=== PATIENT | male | born 1985 | race Caucasian/White ===

== ENCOUNTER 2020-11-12 14:30 | Inpatient (IN) | payer BC, SELFPAY ==
[2020-11-12] VITALS (8 sets, daily range): BP systolic 119–156; BP diastolic 72–92; PULSE 104–115; RESP 20–32; TEMP 36.2–37.1; O2SAT 91–93
--- NOTE | ~2020-11-12 | XR_ITS ---
XR chest 1V portable DATE: 11/12/2020 15:09 INDICATION: Shortness of breath, cough, nausea. Covid-positive patient. TECHNIQUE: Portable upright AP view on 11/12/2020 at 1510 hours COMPARISON: None FINDINGS: Normal heart size. No pleural effusion. There are patchy bilateral infiltrates involving the mid and lower lung zones primarily, likely due t o bilateral pneumonia. No pneumothorax. Dextroscoliosis of the thoracic spine. IMPRESSION: Patchy bilateral mid and lower lung infiltrate infiltrates suggesting bilateral pneumonia Reviewed, dictated and finalized at location A. [employer] IMPRESSION: Patchy bilateral mid and lower lung infiltrate infiltrates suggesti ng bilateral pneumonia
[2020-11-12 15:15] LABS: Basophils Percent Auto 0.4 % (0.2-1.2); Hematocrit 47.7 % (42.0-52.0); Hemoglobin 16.2 g/dL (14.0-18.0); Immature Granulocyte Absolute 0.02 K/mm3 (0.00-0.031); Immature Granulocyte Percent A 0.4 % (0-0.5); Lymphocytes Absolute Auto 0.76 K/mm3 (0.9-3.2); Lymphocytes Percent Auto 14.6 % (18.3-44.2); Mean Corpuscular Hemoglobin 29.3 pg (26-34); Mean Corpuscular Volume 86.3 fl (80-100); Mean Platelet Volume 10.5 fl (7.4-10.4); Monocytes Absolute Auto 0.3 K/mm3 (0.1-0.6); Neutrophils Absolute Auto 4.1 K/mm3 (1.3-6.7); Neutrophils Percent Auto 79.6 % (45.5-73.1); Platelet Count Result 181 k/mm3 (150-375); Red Blood Count 5.53 M/mm3 (4.6-6.20); Red Cell Distribution Width 13.5 % (11.5-14.5); White Blood Count 5.2 K/mm3 (4.5-10.0)
[2020-11-12 15:32] LABS: D Dimer 0.38 ug/mL (<0.48)
[2020-11-12 15:36] LABS: Alanine Aminotransferase 73 U/L (4-50); Albumin Level 4.6 g/dL (3.5-5.1); Alkaline Phosphatase 23 U/L (38-126); Anion Gap 4 mmol/L (8-16); Aspartate Amino Transferase 89 U/L (17-59); Bilirubin,Total 0.6 mg/dL (0.2-1.3); Blood Urea Nitrogen 14 mg/dL (9-20); Carbon Dioxide 32 mmol/L (22-30); Chloride 98 mmol/L (98-107); Estimated CRCL calculation 125 ml/min; Estimated Glomerular Filt Rate > 60; Glucose 115 mg/dL (75-110); Potassium 4.4 mmol/L (3.4-5.0); Sodium 134 mmol/L (137-145)
[2020-11-12 15:56] LABS: CRP 5.5 mg/dL (<1.0)
[2020-11-12] MEDS: SODIUM CHLORIDE 0.9% IV 1,000 ML 999 ML IV CONT (15:59)
--- NOTE | 2020-11-12 16:11 | PC.NURSE ---
PT AMBULATED TO ROOM 14. PT C/O SOB WITH AMBULATION. PT WALKING O2 SAT 87% ON ROOM AIR.
--- NOTE | 2020-11-12 17:57 | PC.NURSE ---
Patient expresses concerns about admission to hospital. Reports that he is very scared and nervous about being admitted and away from his family. He reports that he also fears the elevator ride up to the floor, telling me that he has not been in an elevator in a number of years after being stuck in one previously.
--- NOTE | 2020-11-12 18:02 | ED.GENADULT ---
HPI - General Adult General Chief complaint: Upper Respiratory Infection Stated complaint: covid +/SOB Time Seen by Provider: 11/12/20 14:34 History of Present Illness HPI narrative: Patient is a 34-year-old male who presents ER with increased shortness of breath. Diagnosed with Covid 5 days ago. Has had some mild cough. No chest pain or chest pressure. Has a pulse oximeter at home that got as low as 84% on room air. Reports he has been on no medications. He got the illness from a coworker. Related Data Home Medications Medication Instructions Recorded Confirmed hydroxyzine HCl 11/12/20 levothyroxine 11/12/20 lorazepam 0.5 mg PO BID PRN 11/12/20 meloxicam 11/12/20 sertraline mg 11/12/20 Allergies Allergy/AdvReac Type Severity Reaction Status Date / Time No Known Allergies Allergy Verified 11/12/20 14:36 Review of Systems Review of Systems: All systems reviewed & are unremarkable except as noted in HPI and below Constitutional: Constitutional: Denies chills, Reports fatigue and Reports fever(s) ENT: Denies nasal congestion and Denies sore throat Cardiovascular: Cardiovascular: Denies chest pain, Denies rapid heart rate and Denies radiating jaw, neck or arm pain Respiratory: Respiratory: Reports cough, Reports dyspnea and Denies wheezing Gastrointestinal: Gastrointestinal: Denies nausea and Denies vomiting PMFSH Past Medical History Medical History (Updated 11/12/20 @ 18:15 by Fazal Mcdermott MD) Anxiety GERD (gastroesophageal reflux disease) Surgical History Surgical History (Updated 11/12/20 @ 18:12 by Fazal Mcdermott MD) History of appendectomy Hx of tonsillectomy Social History Social History (Updated 11/12/20 @ 18:13 by Fazal Mcdermott MD) Smoking status: Never smoker Gender identity (if verbalized by the patient): Male Exam Narrative: Exam Narrative: GENERAL: Well-appearing, well-nourished, and in no acute distress. HEAD: Normocephalic, atraumatic. EYES: PERRL and EOMI. CHEST: Clear to auscultation. No respiratory distress. HEART: Tachycardic and regular. Normal peripheral pulses. ABDOMEN: Soft, nontender, nondistended. EXTREMITIES: Normal range of motion. No edema. SKIN: Warm, dry, no rash. NEURO: Alert and oriented x3. Course Course Emergency Course: Hypoxic with exertion. Started on dexamethasone admit to hospitalist service. Vital Signs Vital signs: Vital Signs Temperature 98.2 F 11/12/20 14:34 Pulse Rate 111 H 11/12/20 14:34 Respiratory Rate 24 H 11/12/20 14:34 Blood Pressure 156/83 H 11/12/20 14:34 Pulse Oximetry 93 11/12/20 14:34 Temperature 97.9 F 11/12/20 18:00 Pulse Rate 104 H 11/12/20 18:00 Respiratory Rate 24 H 11/12/20 18:00 Blood Pressure 119/72 11/12/20 18:00 Pulse Oximetry 93 11/12/20 18:00 Medical Decision Making Vital Signs Vital Signs: Vital Signs Temperature 98.2 F 11/12/20 14:34 Pulse Rate 111 H 11/12/20 14:34 Respiratory Rate 24 H 11/12/20 14:34 Blood Pressure 156/83 H 11/12/20 14:34 Pulse Oximetry 93 11/12/20 14:34 Temperature 97.9 F 11/12/20 18:00 Pulse Rate 104 H 11/12/20 18:00 Respiratory Rate 24 H 11/12/20 18:00 Blood Pressure 119/72 11/12/20 18:00 Pulse Oximetry 93 11/12/20 18:00 Lab Data Result diagrams: 11/12/20 15:09 11/12/20 15:09 Labs: Lab Results 11/12/20 11/12/20 11/12/20 Range/Units 15:09 15:09 15:09 WBC 5.2 (4.5-10.0) K/mm3 RBC 5.53 (4.6-6.20) M/mm3 Hgb 16.2 (14.0-18.0) g/dL Hct 47.7 (42.0-52.0) % MCV 86.3 (80-100) fl MCH 29.3 (26-34) pg MCHC 34.0 (32-36) g/dl RDW 13.5 (11.5-14.5) % Plt Count 181 (150-375) k/mm3 MPV 10.5 H (7.4-10.4) fl Immature Gran % (Auto) 0.4 (0-0.5) % Neut % (Auto) 79.6 H (45.5-73.1) % Lymph % (Auto) 14.6 L (18.3-44.2) % Villalba % (Auto) 5.0 (2.6-8.5) % Eos % (Auto) 0.0 (0-4.4) % Baso % (Auto) 0.4
[2020-11-12] MEDS: DEXAMETHASONE SOD PHOS INJ 4 MG/ML VIAL 6 MG IV PUSH (18:12)
[2020-11-12] MEDS: SODIUM CHLORIDE 0.9% IV 1,000 ML 125 ML IV CONT (18:21)
--- NOTE | 2020-11-12 19:00 | PC.NURSE ---
This patient, Niko Smith, was admitted to 3 Med Surg Room 320-01. Patient/family oriented to hospital policies and general routines including ID bracelet, bed and alarms, visiting hours, pain management, procedures, bathroom and other care routines, personal items, smoking policy, room service/diet, and visiting hours.Report received from Jarret LOPES. Patient/Family are encouraged to report perceived risks to care and to ask questions if they do not understand what they are told or what they should do.
[2020-11-13] VITALS (11 sets, daily range): BP systolic 114–148; BP diastolic 55–93; PULSE 89–114; RESP 16–20; TEMP 35.6–37.3; O2SAT 90–94; BMI 49.0
--- NOTE | 2020-11-13 00:09 | PM.IMHP ---
H&P: HPI History of Present Illness Date/Time: 11/13/20 00:09 Chief Complaint: Hypoxia Narrative: Niko Smith is a 34 year old male who tested positive for COVID-19 approximately 5 days ago. The patient was exposed to COVID-19 through a co-worker. The patient has been monitoring his pulse ox at home and stated that his oxygen level got down to 84%. the patient has been having a cough but no fever today. Patient stated that his cough is just irritant. The patient short of breath with exertion. His shortness of breath got worse today. He took Mucinex at home which seemed to help. Patient has no chest pain. His heart rate was in the lower 100s. Respiratory rate was 24. When I saw the patient he was on room air. The patient was started on Decadron was given Ativan for PTSD. Patient is being admitted to observation date of service 11/12/2020 Review of Systems Review of Systems: All systems reviewed & are unremarkable except as noted in HPI and below Constitutional: Constitutional: Reports as per HPI and Reports no additional constitutional complaints Eyes: Eyes: Reports as per HPI and Reports no additional eye complaints ENT: Reports system reviewed and no additional complaints, except as documented and Reports Normal hearing present Cardiovascular: Cardiovascular: Reports no additional cardiovascular complaints Respiratory: Respiratory: Reports no additional respiratory complaints and Reports no additional respiratory complaints Gastrointestinal: Gastrointestinal: Reports as per HPI and Reports no additional gastrointestinal complaints Musculoskeletal: Musculoskeletal: Reports no additional musculoskeletal complaints Integumentary/Breasts: Skin/Breast: Reports system reviewed and no additional complaints, except as docu and Reports as per HPI Neurologic: Reports system reviewed and no additional complaints, except as documented, Reports as per HPI and Reports Normal hearing present Psychiatric: Psychiatric: Reports no additional psychiatric complaints and Reports as per HPI Endocrine: Endocrine: Reports no additional endocrine complaints Hematologic/Lymphatic: Hematologic/Lymphatic: Reports no additional hematologic/lymphatic complaints Allergic/Immunologic: Allergic/Immunologic: Reports no additional allergic/immunologic complaints [facility] Past Medical History Medical History (Updated 11/13/20 @ 00:26 by Dania Cuadra NP) Anxiety Generalized anxiety disorder GERD (gastroesophageal reflux disease) Hypothyroidism PTSD (post-traumatic stress disorder) Surgical History Surgical History (Updated 11/12/20 @ 18:12 by Fazal Mcdermott MD) History of appendectomy Hx of tonsillectomy Family History Family History (Updated 11/13/20 @ 00:18 by Dania Cuadra NP) Father Acute myocardial infarction due to motor vehicle traffic accident Mother Acute myocardial infarction Sibling Hypothyroidism Social History Social History (Updated 11/13/20 @ 00:19 by Dania Cuadra NP) Social History: the patient lives with his and 2 children. 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 The patient is a full code. The patient does not use any alcohol marijuana or illicit drugs. the patient used to work for the [employer] department and developed PTSD and quit. 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 Smoking status: Never smoker Alcohol intake: never Substance use: never Gender identity (if verbalized by the patient): Male Spiritual care concerns: No Meds Home Medications and Allergies Home Medications Medication Instructions Recorded Confirmed Type hydroxyzine HCl 50 mg PO HS 11/12/20 11/12/20 History levothyroxine 75 mcg PO DAILY 11/12/20 11/12/20 History lorazepam 0.5 mg PO BID PRN 11/12/20 11/12/20 History meloxicam 15 mg PO HS 11/12/20 11/12/20 History sertraline 200 mg PO HS 11/12/20 11/12/20 History Allergies Allergy/AdvReac Type Severity Reaction Status
[2020-11-13] MEDS: guaiFENesin/DEXTROMETHORPHAN 10 ML UDC PO (00:33)
[2020-11-13] MEDS: LEVALBUTEROL HFA (*SP) 15 GM INHALER 2 PUFF INHALATION (03:08)
[2020-11-13] MEDS: BENZONATATE 100 MG CAPSULE PO ×2 (03:23→10:00)
[2020-11-13] MEDS: LEVOTHYROXINE SODIUM 75 MCG TABLET PO (06:17)
[2020-11-13 06:54] LABS: Basophils Percent Auto 0.2 % (0.2-1.2); Hemoglobin 14.9 g/dL (14.0-18.0); Immature Granulocyte Absolute 0.03 K/mm3 (0.00-0.031); Immature Granulocyte Percent A 0.6 % (0-0.5); Lymphocytes Absolute Auto 0.72 K/mm3 (0.9-3.2); Lymphocytes Percent Auto 14.3 % (18.3-44.2); Mean Corpuscular HGB Conc 33.9 g/dl (32-36); Mean Corpuscular Hemoglobin 29.2 pg (26-34); Mean Corpuscular Volume 86.1 fl (80-100); Monocytes Absolute Auto 0.3 K/mm3 (0.1-0.6); Monocytes Percent Auto 5.7 % (2.6-8.5); Neutrophils Percent Auto 79.2 % (45.5-73.1); Platelet Count Result 177 k/mm3 (150-375); Red Blood Count 5.11 M/mm3 (4.6-6.20); Red Cell Distribution Width 13.3 % (11.5-14.5); White Blood Count 5.1 K/mm3 (4.5-10.0)
[2020-11-13 07:06] LABS: Alanine Aminotransferase 68 U/L (4-50); Albumin Level 4.2 g/dL (3.5-5.1); Alkaline Phosphatase 23 U/L (38-126); Anion Gap 7 mmol/L (8-16); Aspartate Amino Transferase 70 U/L (17-59); Bilirubin,Total 0.5 mg/dL (0.2-1.3); Blood Urea Nitrogen 13 mg/dL (9-20); Calcium 8.8 mg/dL (8.4-10.2); Carbon Dioxide 29 mmol/L (22-30); Chloride 101 mmol/L (98-107); Estimated CRCL calculation 149 ml/min; Estimated Glomerular Filt Rate > 60; Glucose 120 mg/dL (75-110); Magnesium 1.8 mg/dL (1.6-2.3); Potassium 4.3 mmol/L (3.4-5.0); Sodium 137 mmol/L (137-145)
[2020-11-13 09:02] LABS: CRP 5.3 mg/dL (<1.0)
[2020-11-13] MEDS: DEXAMETHASONE SOD PHOS INJ 4 MG/ML VIAL 6 MG IV PUSH (10:00)
[2020-11-13] MEDS: ENOXAPARIN 40 MG/0.4 ML SYRINGE SUB-Q ×2 (10:00→20:42)
[2020-11-13 10:57] LABS: Alanine Aminotransferase 65 U/L (4-50); Estimated CRCL calculation 149 ml/min; Estimated Glomerular Filt Rate > 60
--- NOTE | 2020-11-13 11:28 | PM.IMPN ---
Progress Note: A&P Assessment and Plan (1) Acute respiratory failure with hypoxia: Code(s): J96.01 - Acute respiratory failure with hypoxia Status: Acute Assessment and Plan: Oxygen requirements increased to 4 liters today (11/13). Likely secondary to COVID-19 pneumonia. CXR demonstrating patchy bilateral mid and lower lung infiltrates. Continue supplemental oxygen as needed to maintain oxygen saturation >90%, wean as tolerated Continue treatment of COVID-19 pneumonia with plan outlined below (2) Pneumonia due to COVID-19 virus: Code(s): U07.1 - COVID-19; J12.82 - Pneumonia due to coronavirus disease 2019 Status: Acute Assessment and Plan: He tested positive 11/07/20. He suspects exposure was from his coworker. Initial symptoms started 11/07 and included body aches, fatigue, and fever. He developed shortness of breath and cough 11/10 which continued to worsen, especially with exertion. CXR demonstrates patchy bilateral mid and lower lung infiltrates. Oxygen requirements increased to 4 liters per nasal cannula today. Continue dexamethasone (day 11/22 - initiated 11/12) Begin remdesivir given hypoxia (day 1 - initiated 11/13) & monitor renal and liver function closely. Mild transaminitis likely secondary to viral infection noted. Continue supportive care with prone positioning, expectorant, PEP, incentive spirometry, tylenol as needed for fever Trend acute phase reactants Obtain blood and sputum cultures Continue supplemental oxygen as needed to maintain oxygen saturation >90% (3) Hypothyroidism: Code(s): E03.9 - Hypothyroidism, unspecified Status: Chronic Assessment and Plan: TSH elevated at 5.7. Free T4 pending. Continue levothyroxine Await free T4 but will likely recommend repeat thyroid function tests in 4 weeks when acute illness resolves (4) Generalized anxiety disorder: Code(s): F41.1 - Generalized anxiety disorder Status: Chronic Assessment and Plan: Chronic. Mood is stable. Continue prior to admission lorazepam and hydroxyzine (5) PTSD (post-traumatic stress disorder): Code(s): F43.10 - Post-traumatic stress disorder, unspecified Status: Chronic Assessment and Plan: Chronic. Continue prior to admission lorazepam and hydroxyzine (6) GERD (gastroesophageal reflux disease): Code(s): K21.9 - Gastro-esophageal reflux disease without esophagitis Status: Chronic Assessment and Plan: He reports infrequent symptoms and rarely needs antacids. Add calcium carbonate as needed Subjective Date/time seen: 11/13/20 11:28 Mr. Smith is a 34 y.o. male with PMH significant for morbid obesity, anxiety, PTSD, and hypothyroidism who is seen in follow-up for pneumonia due to COVID-19. He tested positive 11/07 and noted dyspnea 11/11 which continued to worsen prompting admission. He feels okay today. His primary concern is dyspnea with exertion. He felt very short of breath when he got up to use the bathroom this AM. Oxygen requirements increased to 4 liters per nasal cannula. He notes cough productive of yellow/clear sputum. He has no pleuritic pain or chest pain. He reports no palpitations. He reports poor oral intake due to poor appetite but is tolerating clear liquids. He has no abdominal pain, nausea, or vomiting. No loss of taste or smell. He has no headaches, dizziness, or lightheadedness. He reports no leg swelling or calf pain. He has no other concerns. Review of Systems Review of Systems: All systems reviewed & are unremarkable except as noted in HPI and below Exam Narrative: Exam Narrative: General: Very pleasant, well-developed, and morbidly obese 34 y.o. male sitting up in bed in no acute distress. Head: Normocephalic and atraumatic. Sclera anicteric. EOMI. Oral mucosa tacky, tongue green from popsicle. Neck: Supple. Large neck circumference. No masses. Cardiac
[2020-11-13] MEDS: REMDESIVIR 200 MG/NS 250 ML 200 MG/250 ML BAG 250 MG IVPB (11:41)
[2020-11-13] MEDS: guaiFENesin 12 HR 600 MG TABCR 1200 MG PO ×2 (12:29→20:43)
[2020-11-13 13:04] LABS: Free T4 Free Thyroxine Reflex 0.68 ng/dL (0.78-2.19)
[2020-11-13] MEDS: MELOXICAM 7.5 MG TABLET 15 MG PO (20:43)
[2020-11-13] MEDS: hydrOXYzine HCL 25 MG TABLET 50 MG PO (20:43)
[2020-11-13] MEDS: SERTRALINE HCL 25 MG TABLET 200 MG PO (20:44)
[2020-11-14] VITALS (9 sets, daily range): BP systolic 108–132; BP diastolic 20–82; PULSE 72–96; RESP 16–22; TEMP 36.2–37; O2SAT 90–96
[2020-11-14] MEDS: LEVOTHYROXINE SODIUM 75 MCG TABLET PO (05:42)
[2020-11-14] MEDS: LEVALBUTEROL HFA (*SP) 15 GM INHALER 2 PUFF INHALATION (05:42)
[2020-11-14 06:02] LABS: Hematocrit 44.6 % (42.0-52.0); Hemoglobin 15.2 g/dL (14.0-18.0); Mean Corpuscular HGB Conc 34.1 g/dl (32-36); Mean Corpuscular Hemoglobin 29.3 pg (26-34); Mean Corpuscular Volume 86.1 fl (80-100); Mean Platelet Volume 10.6 fl (7.4-10.4); Platelet Count Result 202 k/mm3 (150-375); Red Blood Count 5.18 M/mm3 (4.6-6.20); Red Cell Distribution Width 13.3 % (11.5-14.5); White Blood Count 6.1 K/mm3 (4.5-10.0)
[2020-11-14 06:25] LABS: Alanine Aminotransferase 67 U/L (4-50); Albumin Level 4.1 g/dL (3.5-5.1); Alkaline Phosphatase 21 U/L (38-126); Anion Gap 7 mmol/L (8-16); Aspartate Amino Transferase 67 U/L (17-59); Bilirubin,Total 0.5 mg/dL (0.2-1.3); Blood Urea Nitrogen 15 mg/dL (9-20); Calcium 8.9 mg/dL (8.4-10.2); Carbon Dioxide 31 mmol/L (22-30); Chloride 100 mmol/L (98-107); Estimated CRCL calculation 136 ml/min; Estimated Glomerular Filt Rate > 60; Glucose 105 mg/dL (75-110); Magnesium 1.8 mg/dL (1.6-2.3); Sodium 138 mmol/L (137-145)
[2020-11-14 06:55] LABS: CRP 5.4 mg/dL (<1.0)
[2020-11-14 07:00] LABS: Creatine Kinase 122 U/L (55-170); Lactate Dehydrogenase 712 U/L (313-618)
[2020-11-14] MEDS: REMDESIVIR 100 MG/NS 250 ML 100 MG/250 ML BAG 250 MG IVPB (10:06)
[2020-11-14] MEDS: guaiFENesin 12 HR 600 MG TABCR 1200 MG PO ×2 (10:07→20:24)
[2020-11-14] MEDS: ENOXAPARIN 40 MG/0.4 ML SYRINGE SUB-Q ×2 (10:07→20:25)
[2020-11-14] MEDS: DEXAMETHASONE SOD PHOS INJ 4 MG/ML VIAL 6 MG IV PUSH (10:08)
--- NOTE | 2020-11-14 14:21 | PM.IMPN ---
Progress Note: A&P Assessment and Plan (1) Acute respiratory failure with hypoxia: Code(s): J96.01 - Acute respiratory failure with hypoxia Status: Acute Assessment and Plan: Oxygen requirements increased to 6 liters today, secondary to COVID-19 pneumonia. CXR demonstrates patchy bilateral mid and lower lung infiltrates. Continue supplemental oxygen as needed to maintain oxygen saturation 90% or above, wean as tolerated Continue treatment of COVID-19 pneumonia with plan outlined below (2) Pneumonia due to COVID-19 virus: Code(s): U07.1 - COVID-19; J12.82 - Pneumonia due to coronavirus disease 2019 Status: Acute Assessment and Plan: He tested positive 11/07/20. He suspects exposure was from his coworker. Initial symptoms started 11/07 and included body aches, fatigue, and fever. He developed shortness of breath and cough 11/10 which continued to worsen, especially with exertion. CXR demonstrates patchy bilateral mid and lower lung infiltrates. Oxygen requirements increased to 6 liters per nasal cannula today. Continue dexamethasone (initiated 11/12) Continue remdesivir given hypoxia (initiated 11/13) & monitor renal and liver function closely. Mild transaminitis likely secondary to viral infection noted. Continue supportive care with prone positioning, expectorants, bronchodilators, PEP, incentive spirometry, tylenol as needed for fever Trend acute phase reactants Blood and sputum cultures pending Continue supplemental oxygen as needed to maintain oxygen saturation >90% (3) Hypothyroidism: Code(s): E03.9 - Hypothyroidism, unspecified Status: Chronic Assessment and Plan: TSH elevated at 5.7. Free T4 low. May be related to acute infection. Continue levothyroxine at current dose Recommend repeat thyroid function tests in 4 weeks upon resolution of acute illness. (4) Generalized anxiety disorder: Code(s): F41.1 - Generalized anxiety disorder Status: Chronic Assessment and Plan: Chronic. Mood is stable. Continue prior to admission lorazepam and hydroxyzine (5) PTSD (post-traumatic stress disorder): Code(s): F43.10 - Post-traumatic stress disorder, unspecified Status: Chronic Assessment and Plan: Chronic. Continue prior to admission lorazepam and hydroxyzine (6) GERD (gastroesophageal reflux disease): Code(s): K21.9 - Gastro-esophageal reflux disease without esophagitis Status: Chronic Assessment and Plan: He reports infrequent symptoms and rarely needs antacids. Calcium carbonate as needed Subjective Date/time seen: 11/14/20 14:21 Interval history: Date of service: 11/14/20 Niko Smith is a 34 year old male with a history of hypothyroidism, GERD, anxiety, and PTSD who is seen in follow up for COVID-19 pneumonia. He reports he is feeling fairly well today. He is eager for discharge home. He does endorse dyspnea on exertion, even with just moving/adjusting in bed. He reports cough with occasional clear sputum production. Denies nausea, vomiting, fever, chills, dizziness, lightheadedness. He reports poor appetite but feels this is improving. Denies anosmia or dysguesia. He had a regular BM last night. He has been urinating without difficulty. He has no additional concerns at this time. Review of Systems Review of Systems: All systems reviewed & are unremarkable except as noted in HPI and below Exam Narrative: Exam Narrative: Mr. Smith is an obese, well-appearing 34-year-old male who is sitting up in bed. he appears comfortable and is in NARD. HR 95, BP 108/54, RR 95, T 98.4?, 93% on 6 L Neuro: awake, alert and oriented x4, speech clear, no focal neuro deficits noted HEENMT: normocephalic, atraumatic, EOMI, sclerae anicteric, moist oral mucosa, tongue midline, nares patent Neck: supple, no lymphadenopathy Respiratory: difficult to auscultate given body habitus and lo
[2020-11-14] MEDS: SERTRALINE HCL 50 MG TABLET 200 MG PO (20:22)
[2020-11-14] MEDS: hydrOXYzine HCL 25 MG TABLET 50 MG PO (20:24)
[2020-11-14] MEDS: MELOXICAM 7.5 MG TABLET 15 MG PO (20:24)
[2020-11-15] VITALS (7 sets, daily range): BP systolic 118–135; BP diastolic 69–87; PULSE 76–94; RESP 20–22; TEMP 35.8–36.6; O2SAT 91–96
[2020-11-15] MEDS: CALCIUM CARBONATE (TUMS) 500 MG (200 MG ELEMENTAL) PO (04:29)
[2020-11-15] MEDS: LEVOTHYROXINE SODIUM 75 MCG TABLET PO (05:31)
[2020-11-15 06:17] LABS: Hematocrit 47.3 % (42.0-52.0); Hemoglobin 15.7 g/dL (14.0-18.0); Mean Corpuscular HGB Conc 33.2 g/dl (32-36); Mean Corpuscular Volume 87.3 fl (80-100); Mean Platelet Volume 10.2 fl (7.4-10.4); Platelet Count Result 264 k/mm3 (150-375); Red Blood Count 5.42 M/mm3 (4.6-6.20); Red Cell Distribution Width 13.6 % (11.5-14.5); White Blood Count 6.6 K/mm3 (4.5-10.0)
[2020-11-15 07:32] LABS: Alanine Aminotransferase 93 U/L (4-50); Albumin Level 4.3 g/dL (3.5-5.1); Alkaline Phosphatase 25 U/L (38-126); Anion Gap 6 mmol/L (8-16); Aspartate Amino Transferase 85 U/L (17-59); Bilirubin,Total 0.7 mg/dL (0.2-1.3); Blood Urea Nitrogen 18 mg/dL (9-20); CRP 5.9 mg/dL (<1.0); Calcium 9.5 mg/dL (8.4-10.2); Carbon Dioxide 33 mmol/L (22-30); Chloride 102 mmol/L (98-107); Estimated CRCL calculation 136 ml/min; Estimated Glomerular Filt Rate > 60; Glucose 108 mg/dL (75-110); Potassium 4.3 mmol/L (3.4-5.0); Sodium 141 mmol/L (137-145)
[2020-11-15] MEDS: DEXAMETHASONE SOD PHOS INJ 4 MG/ML VIAL 6 MG IV PUSH (10:24)
[2020-11-15] MEDS: REMDESIVIR 100 MG/NS 250 ML 100 MG/250 ML BAG 250 MG IVPB (10:25)
[2020-11-15] MEDS: ENOXAPARIN 40 MG/0.4 ML SYRINGE SUB-Q ×2 (10:25→21:06)
[2020-11-15] MEDS: guaiFENesin 12 HR 600 MG TABCR 1200 MG PO ×2 (10:25→21:06)
--- NOTE | 2020-11-15 13:04 | PM.IMPN ---
Progress Note: A&P Assessment and Plan (1) Acute respiratory failure with hypoxia: Code(s): J96.01 - Acute respiratory failure with hypoxia Status: Acute Assessment and Plan: Oxygen requirements remain at 6 liters today, secondary to COVID-19 pneumonia. CXR demonstrates patchy bilateral mid and lower lung infiltrates. Continue supplemental oxygen as needed to maintain oxygen saturation 90% or above, wean as tolerated Continue treatment of COVID-19 pneumonia with plan outlined below (2) Pneumonia due to COVID-19 virus: Code(s): U07.1 - COVID-19; J12.82 - Pneumonia due to coronavirus disease 2019 Status: Acute Assessment and Plan: He tested positive 11/07/20. He suspects exposure was from his coworker. Initial symptoms started 11/07 and included body aches, fatigue, and fever. He developed shortness of breath and cough 11/10 which continued to worsen, especially with exertion. CXR demonstrates patchy bilateral mid and lower lung infiltrates. Oxygen requirements remain at 6 liters per nasal cannula today. Remains afebrile. Continue dexamethasone (initiated 11/12) Continue remdesivir given hypoxia (initiated 11/13) & monitor renal and liver function closely. Mild transaminitis likely secondary to viral infection noted. Continue supportive care with prone positioning, expectorants, bronchodilators, PEP, incentive spirometry, tylenol as needed for fever Trend acute phase reactants Preliminary blood cultures no growth today. Sputum culture shows normal oropharyngeal claudia. Continue supplemental oxygen as needed to maintain oxygen saturation >90% Will plan for home O2 evaluation tomorrow if oxygen requirements remain stable (3) Hypothyroidism: Code(s): E03.9 - Hypothyroidism, unspecified Status: Chronic Assessment and Plan: TSH elevated at 5.7. Free T4 low. May be related to acute infection. Continue levothyroxine at current dose Recommend repeat thyroid function tests in 4 weeks upon resolution of acute illness. (4) Generalized anxiety disorder: Code(s): F41.1 - Generalized anxiety disorder Status: Chronic Assessment and Plan: Chronic. Mood is stable. Continue prior to admission lorazepam and hydroxyzine (5) PTSD (post-traumatic stress disorder): Code(s): F43.10 - Post-traumatic stress disorder, unspecified Status: Chronic Assessment and Plan: Chronic. Continue prior to admission lorazepam and hydroxyzine (6) GERD (gastroesophageal reflux disease): Code(s): K21.9 - Gastro-esophageal reflux disease without esophagitis Status: Chronic Assessment and Plan: He reports infrequent symptoms and rarely needs antacids. Calcium carbonate as needed Subjective Date/time seen: 11/15/20 13:04 Interval history: Date of service: 11/15/20 Niko Smith is a 34 year old male with a history of hypothyroidism, GERD, anxiety, and PTSD who is seen in follow up for COVID-19 pneumonia. He feels a little better today. He still endorses dyspnea with minimal exertion. Denies cough. Appetite is still poor. He has been drinking plenty of fluids. He denies N/V, fever, chills, dizziness, lightheadedness, headache, myalgias. He has no other concerns. He does have several questions about going home and COVID isolation/precautions and all questions were answered to his satisfaction. Review of Systems Review of Systems: All systems reviewed & are unremarkable except as noted in HPI and below Exam Narrative: Exam Narrative: Mr. Smith is an obese, well-appearing 34-year-old male who is sitting up in bed. He appears comfortable and is in NARD. HR 83, BP 125/69, RR 20, T 96.4?, 92% on 6 L Neuro: awake, alert and oriented x4, speech clear, no focal neuro deficits noted HEENMT: normocephalic, atraumatic, EOMI, sclerae anicteric, moist oral mucosa, tongue midline, nares patent Neck: supple, no lymphadenopa
[2020-11-15] MEDS: SERTRALINE HCL 50 MG TABLET 200 MG PO (21:05)
[2020-11-15] MEDS: MELOXICAM 7.5 MG TABLET 15 MG PO (21:06)
[2020-11-15] MEDS: hydrOXYzine HCL 25 MG TABLET 50 MG PO (21:06)
[2020-11-16] VITALS (9 sets, daily range): BP systolic 102–136; BP diastolic 66–87; PULSE 72–120; RESP 20–24; TEMP 36.2–36.5; O2SAT 88–95
[2020-11-16] MEDS: LEVOTHYROXINE SODIUM 75 MCG TABLET PO (05:40)
[2020-11-16 06:19] LABS: Hematocrit 45.3 % (42.0-52.0); Hemoglobin 15.3 g/dL (14.0-18.0); Mean Corpuscular HGB Conc 33.8 g/dl (32-36); Mean Corpuscular Hemoglobin 28.6 pg (26-34); Mean Corpuscular Volume 84.7 fl (80-100); Mean Platelet Volume 10.1 fl (7.4-10.4); Platelet Count Result 299 k/mm3 (150-375); Red Blood Count 5.35 M/mm3 (4.6-6.20); Red Cell Distribution Width 13.2 % (11.5-14.5); White Blood Count 6.4 K/mm3 (4.5-10.0)
[2020-11-16 06:32] LABS: Alanine Aminotransferase 116 U/L (4-50); Anion Gap 9 mmol/L (8-16); Blood Urea Nitrogen 21 mg/dL (9-20); CRP 3.2 mg/dL (<1.0); Calcium 9.5 mg/dL (8.4-10.2); Carbon Dioxide 30 mmol/L (22-30); Chloride 103 mmol/L (98-107); Estimated CRCL calculation 149 ml/min; Estimated Glomerular Filt Rate > 60; Glucose 99 mg/dL (75-110); Potassium 4.1 mmol/L (3.4-5.0); Sodium 142 mmol/L (137-145)
[2020-11-16] MEDS: DEXAMETHASONE SOD PHOS INJ 4 MG/ML VIAL 6 MG IV PUSH (08:54)
[2020-11-16] MEDS: ENOXAPARIN 40 MG/0.4 ML SYRINGE SUB-Q ×2 (08:54→21:19)
[2020-11-16] MEDS: guaiFENesin 12 HR 600 MG TABCR 1200 MG PO ×2 (08:55→21:19)
[2020-11-16] MEDS: REMDESIVIR 100 MG/NS 250 ML 100 MG/250 ML BAG 250 MG IVPB (10:15)
--- NOTE | 2020-11-16 11:48 | PCRCNOTE ---
HOME O2 EVAL DONE. PT DROPPED TO 88% ON 6L WITH ACTIVITY. YANNA BLAND NOTIFIED
--- NOTE | 2020-11-16 12:27 | PM.IMPN ---
Progress Note: A&P Assessment and Plan (1) Acute respiratory failure with hypoxia: Code(s): J96.01 - Acute respiratory failure with hypoxia Status: Acute Assessment and Plan: Oxygen requirements remain at 6 liters today, secondary to COVID-19 pneumonia. CXR demonstrates patchy bilateral mid and lower lung infiltrates. He did desaturate with exertion on walking trial today. Continue supplemental oxygen as needed to maintain oxygen saturation 90% or above, wean as tolerated Continue treatment of COVID-19 pneumonia with plan outlined below (2) Pneumonia due to COVID-19 virus: Code(s): U07.1 - COVID-19; J12.82 - Pneumonia due to coronavirus disease 2019 Status: Acute Assessment and Plan: He tested positive 11/07/20. He suspects exposure was from his coworker. Initial symptoms started 11/07 and included body aches, fatigue, and fever. He developed shortness of breath and cough 11/10 which continued to worsen, especially with exertion. CXR demonstrates patchy bilateral mid and lower lung infiltrates. Oxygen requirements remain at 6 liters per nasal cannula today. Remains afebrile. Continue dexamethasone (initiated 11/12) Continue remdesivir given hypoxia (initiated 11/13) & monitor renal and liver function closely. Mild transaminitis likely secondary to viral infection noted. Continue supportive care with prone positioning, expectorants, bronchodilators, PEP, incentive spirometry, tylenol as needed for fever Trend acute phase reactants Preliminary blood cultures NGTD. Sputum culture shows normal oropharyngeal claudia. Continue supplemental oxygen as needed to maintain oxygen saturation >90% (3) Hypothyroidism: Code(s): E03.9 - Hypothyroidism, unspecified Status: Chronic Assessment and Plan: TSH elevated at 5.7. Free T4 low. May be related to acute infection. Continue levothyroxine at current dose Recommend repeat thyroid function tests in 4 weeks upon resolution of acute illness. (4) Generalized anxiety disorder: Code(s): F41.1 - Generalized anxiety disorder Status: Chronic Assessment and Plan: Chronic. Mood is stable. Continue prior to admission lorazepam and hydroxyzine (5) PTSD (post-traumatic stress disorder): Code(s): F43.10 - Post-traumatic stress disorder, unspecified Status: Chronic Assessment and Plan: Chronic. Continue prior to admission lorazepam and hydroxyzine (6) GERD (gastroesophageal reflux disease): Code(s): K21.9 - Gastro-esophageal reflux disease without esophagitis Status: Chronic Assessment and Plan: He reports infrequent symptoms and rarely needs antacids. Calcium carbonate as needed Subjective Date/time seen: 11/16/20 12:27 Interval history: Date of service: 11/16/20 Niko Smith is a 34 year old male with a history of hypothyroidism, GERD, anxiety, and PTSD who is seen in follow up for COVID-19 pneumonia. he is feeling better today. His shortness of breath at rest is much less significant, although he still notes dyspnea on exertion. He reports that takes him a while to recover after ambulating. He has been having cough productive of clear sputum. His appetite is still very poor but he reports he is drinking water. He had a regular bowel movement last night. No urinary symptoms. He is down today because he really wants to go home and be with his family but he understands need for hospitalization. Review of Systems Review of Systems: All systems reviewed & are unremarkable except as noted in HPI and below Exam Narrative: Exam Narrative: Mr. Smith is an obese, well-appearing 34-year-old male who is sitting up in bed. He appears comfortable and is in NARD. HR 72, BP 102/66, R 20, T 97.6?, 93% on 6 L Neuro: awake, alert and oriented x4, speech clear, no focal neuro deficits noted HEENMT: normocephalic, atraumatic, EOMI, sclerae anicteric,
[2020-11-16] MEDS: MELOXICAM 7.5 MG TABLET 15 MG PO (21:19)
[2020-11-16] MEDS: hydrOXYzine HCL 25 MG TABLET 50 MG PO (21:20)
[2020-11-16] MEDS: SERTRALINE HCL 50 MG TABLET 200 MG PO (21:20)
[2020-11-17] VITALS (9 sets, daily range): BP systolic 111–135; BP diastolic 66–86; PULSE 70–77; RESP 18–20; TEMP 36.2–36.7; O2SAT 87–96
[2020-11-17] MEDS: LEVOTHYROXINE SODIUM 75 MCG TABLET PO (06:03)
[2020-11-17 06:37] LABS: Hematocrit 46.7 % (42.0-52.0); Hemoglobin 15.7 g/dL (14.0-18.0); Mean Corpuscular HGB Conc 33.6 g/dl (32-36); Mean Corpuscular Hemoglobin 28.5 pg (26-34); Mean Corpuscular Volume 84.9 fl (80-100); Mean Platelet Volume 9.9 fl (7.4-10.4); Platelet Count Result 349 k/mm3 (150-375); Red Cell Distribution Width 13.1 % (11.5-14.5); White Blood Count 7.3 K/mm3 (4.5-10.0)
[2020-11-17 07:00] LABS: Alanine Aminotransferase 156 U/L (4-50); Albumin Level 4.2 g/dL (3.5-5.1); Alkaline Phosphatase 26 U/L (38-126); Anion Gap 9 mmol/L (8-16); Aspartate Amino Transferase 96 U/L (17-59); Bilirubin,Total 0.6 mg/dL (0.2-1.3); Blood Urea Nitrogen 22 mg/dL (9-20); CRP 1.6 mg/dL (<1.0); Calcium 9.5 mg/dL (8.4-10.2); Carbon Dioxide 31 mmol/L (22-30); Chloride 102 mmol/L (98-107); Estimated CRCL calculation 136 ml/min; Estimated Glomerular Filt Rate > 60; Glucose 94 mg/dL (75-110); Lactate Dehydrogenase 678 U/L (313-618); Potassium 3.8 mmol/L (3.4-5.0); Sodium 142 mmol/L (137-145)
[2020-11-17] MEDS: REMDESIVIR 100 MG/NS 250 ML 100 MG/250 ML BAG 250 MG IVPB (09:20)
[2020-11-17] MEDS: guaiFENesin 12 HR 600 MG TABCR 1200 MG PO (09:21)
[2020-11-17] MEDS: DEXAMETHASONE SOD PHOS INJ 4 MG/ML VIAL 6 MG IV PUSH (09:21)
[2020-11-17] MEDS: ENOXAPARIN 40 MG/0.4 ML SYRINGE SUB-Q (09:21)
--- NOTE | 2020-11-17 11:41 | HOMEO2EVAL ---
Home Oxygen Evaluation RC: Home Oxygen (O2) Evaluation Start: 11/16/20 11:10 Freq: ONCE Status: Active Protocol: RPE Activity Type Activity Date Activity User E-Sign Co-Sign Detail Recorded Client Recorded Date Recorded By Document 11/17/20 11:00 [email or web address] [email or web address] 11/17/20 11:41 DJO Document 11/17/20 11:03 [email or web address] [email or web address] 11/17/20 11:41 DJO Document 11/17/20 11:05 [email or web address] [email or web address] 11/17/20 11:41 DJO Document 11/17/20 11:08 [email or web address] [email or web address] 11/17/20 11:41 DJO Document 11/17/20 11:15 [email or web address] [email or web address] 11/17/20 11:41 DJO 11/17/20 11/17/20 11/17/20 11:00 11:03 11:05 Home O2 Evaluation Test Phase Resting Resting Resting Oxygen Delivery Room Air Nasal Cannula Nasal Cannula Oxygen Flow Rate (L/min) 1 2 Pulse Oximetry (90-100 %) 87 L 87 L 93 Home Oxygen Evaluation Comments Treatment Charges O2 Evaluation - Inpatient 11/17/20 11/17/20 11:08 11:15 Home O2 Evaluation Test Phase Exercise Resting Oxygen Delivery Nasal Cannula Nasal Cannula Oxygen Flow Rate (L/min) 2 2 Pulse Oximetry (90-100 %) 90 93 Home Oxygen Evaluation Comments PT REQUIRES 2 L WITH REST AND ACTIVITY Treatment Charges
--- NOTE | 2020-11-17 12:24 | PCNFU ---
Nutrition Follow-Up Complete: Inadequate Oral Intake as related to pneumonia as evidenced by weight loss of 10 lbs in the past 3 months/poor appetite. Goal: Adequate Intake of at least 75% of meals/supplements Patient did not appear to be meeting this goal based on percentages recorded, but spoke with patient who reported that he had a great appetite consuming at least 75% of meals if not more. Pt current nutrition is a regular diet with ensure compact BID providing an additional 220 calories and 9 grams of protein. Last recorded weight is 164 kg. Bowel Motility: + BM 11/16 Labs Reviewed: BUN 22 Meds Noted: Decadron, Lovenox, Synthroid, Zofran, Zoloft, Mobic, Lorazepam, Hydroxyzine Hcl, Benzonatate Additional Notes: Spoke with patient on the phone due to COVID-19. Patient reports doing great. He just received his last dose of Remdesivir and will be going home later today. He reports having a great appetite and liked the ensure compacts. RD will monitor every 5 days.
--- NOTE | 2020-11-17 13:37 | PM.DS ---
DS: Admitting Diagnosis Admitting Diagnosis Admitting Diagnosis: COVID pneumonia DS: Discharge Diagnosis Discharge Diagnosis (1) Acute respiratory failure with hypoxia: Code(s): J96.01 - Acute respiratory failure with hypoxia Status: Acute Assessment and Plan: He was intermittently hypoxic secondary to COVID-19 pneumonia and required up to 6 L O2 per nasal cannula. Oxygen was weaned down to 2 L O2. Home O2 eval performed he will continue with 2 L oxygen at home with rest and with exertion. Instructed to monitor his O2 sats at home and contact his PCP if <90%. (2) Pneumonia due to COVID-19 virus: Code(s): U07.1 - COVID-19; J12.82 - Pneumonia due to coronavirus disease 2019 Status: Acute Assessment and Plan: He tested positive 11/07/20. He suspects exposure was from his coworker. Initial symptoms started 11/07 and included body aches, fatigue, and fever. He developed shortness of breath and cough 11/10 which continued to worsen, especially with exertion. CXR showed patchy bilateral mid and lower lung infiltrates. he remained afebrile. He received IV dexamethasone and completed a 5 day course of Remdesivir. he will continue with p.o. dexamethasone to complete 10 days. Supportive care provided including bronchodilators, expectorants, and incentive spirometry. Blood cultures with NGTD and sputum culture showed normal oropharyngeal claudia. He remained afebrile. He will continue with 2 L supplemental O2 at home. We discussed precautions to prevent/ slow the spread of COVID-19. (3) Hypothyroidism: Code(s): E03.9 - Hypothyroidism, unspecified Status: Chronic Assessment and Plan: TSH elevated at 5.7. Free T4 low. May be related to acute infection. Levothyroxine continued at current dose. He should obtain repeat thyroid function test in 4 weeks upon resolution of acute illness. (4) Generalized anxiety disorder: Code(s): F41.1 - Generalized anxiety disorder Status: Chronic Assessment and Plan: Chronic. Mood remained stable. Continue lorazepam and hydroxyzine (5) PTSD (post-traumatic stress disorder): Code(s): F43.10 - Post-traumatic stress disorder, unspecified Status: Chronic Assessment and Plan: Chronic. Continue lorazepam and hydroxyzine (6) GERD (gastroesophageal reflux disease): Code(s): K21.9 - Gastro-esophageal reflux disease without esophagitis Status: Chronic Assessment and Plan: He reports infrequent symptoms and rarely needs antacids. Calcium carbonate prn. DS: Summary Hospital Course Reason for hospitalization: COVID-19 pneumonia Hospital Course: date of admission: 11/12/2020 date of discharge: 11/17/2020 Niko Smith is a 34 year old male with a history of hypothyroidism, GERD, anxiety, and PTSD who presented to the emergency department on 11/12/2020 with complaints of increased shortness of breath after having been diagnosed with COVID 5 days prior. He had been monitoring his oxygen saturations at home and reported episodes of hypoxia as low as 84% on room air. Upon presentation to the emergency department, he was tachycardic with additional vital signs stable, CBC unremarkable, electrolytes stable, and CXR showed patchy bilateral mid and lower lung infiltrates suggesting bilateral pneumonia. He was admitted to the hospitalist service for further evaluation and management. Please see above for further details. He was treated with IV dexamethasone and Remdesivir. he required up to 6 L supplemental O2 which was weaned. He will continue with 2 L O2 per nasal cannula at home with rest and with exertion. He began feeling much better and requested discharge home. Given his stable oxygen requirements and overall improvement, he was determined to no longer require inpatient care and felt to be stable for discharge. He will follow-up with his PCP within 1 week. we had a long discussion reg
--- NOTE | 2020-11-17 14:04 | PCNSR ---
On 11/17/20, the student, Sofia Estrada, provided care and completed [facility] documentation on this patient. I have reviewed the student's documentation and agree with the findings.
--- NOTE | 2020-11-17 14:08 | PCRCNOTE ---
HOME O2 EVAL DONE, PT REQUIRES 2L O2 REST AND ACTIVITY. SET UP WITH [facility]. RN AWARE
== END 2020-11-17 15:30 | disposition home or self-care (01) | DRG 177 ==
LOC: ANHED 18:15 → ANH3MEDSUR 18:25
PROVIDERS: Nurse Practitioner; Physician Assistant; Admitting Provider Family Medicine; Emergency Provider Emergency Medicine; PCP Nurse Practitioner Family; Visit Provider Physician Assistant
DX: U07.1 COVID-19 (principal); J12.82 Pneumonia due to coronavirus disease 2019; J96.01 Acute respiratory failure with hypoxia; Z68.42 Body mass index [BMI] 45.0-49.9, adult; F41.1 Generalized anxiety disorder; F43.10 Post-traumatic stress disorder, unspecified; K21.9 Gastro-esophageal reflux disease without esophagitis; E03.9 Hypothyroidism, unspecified; E66.01 Morbid (severe) obesity due to excess calories; Z90.49 Acquired absence of other specified parts of digestive tract
CPT/HCPCS: 36415; 71045; 80048; 80053; 82550; 82565; 82728; 83615; 83735; 84439; 84443; 84460; 85025; 85027; 85380; 86140; 87040; 87070; 87205; 94618; 94640; 94667; 96361; 96372; 96374; 96376; 99285; A9270; G0378; J1100; J1650; J7030

== ENCOUNTER 2023-09-02 11:16 | Emergency (ER) | payer BC, SELFPAY ==
[2023-09-02] VITALS (28 sets, daily range): BP systolic 109–145; BP diastolic 66–79; PULSE 52–71; RESP 6–19; TEMP 37.1; O2SAT 96–100
--- NOTE | ~2023-09-02 | XR_ITS ---
EXAMINATION: XR chest 2V 09/02/2023 12:02 INDICATION: Chest pain. PROCEDURE: 2 view chest COMPARISON: 11/12/2020 FINDINGS: The lungs are clear. The cardiomediastinal silhouette is within normal limits. There are no pleural effusions. There is no pneumothorax suspected. IMPRESSION: 1: NO ACUTE CARDIOPULMONARY DISEASE. Reviewed, dictated and finalized at location L. ENTIONS ASSISTANT
--- NOTE | 2023-09-02 11:17 | ECG_ITS ---
Measurements Intervals [place] Rate: 68 P: -5 NJ: 136 QRS: 44 QRSD: 92 T: 59 QT: 365 QTc: 389 Interpretive Statements SINUS RHYTHM BASELINE ARTIFACT- I, III, AVL NORMAL ECG NO PREVIOUS ECG AVAILABLE FOR COMPARISON Electronically Signed On 09-02-2023 13:46:56 FINISH OFF OPERATOR by Miguel Lawrence D.O.
[2023-09-02 11:40] LABS: Basophils Absolute Auto 0.1 K/mm3 (0.0-0.1); Basophils Percent Auto 1.4 % (0.2-1.2); Eosinophils Absolute Auto 0.4 K/mm3 (0-0.3); Eosinophils Percent Auto 5.1 % (0-4.4); Hematocrit 45.7 % (42.0-52.0); Immature Granulocyte Absolute 0.01 K/mm3 (0.00-0.031); Immature Granulocyte Percent A 0.1 % (0-0.5); Lymphocytes Absolute Auto 1.89 K/mm3 (0.9-3.2); Lymphocytes Percent Auto 27.4 % (18.3-44.2); Mean Corpuscular HGB Conc 32.8 g/dl (32-36); Mean Corpuscular Hemoglobin 29.5 pg (26-34); Mean Corpuscular Volume 89.8 fl (80-100); Mean Platelet Volume 10.4 fl (7.4-10.4); Monocytes Absolute Auto 0.4 K/mm3 (0.1-0.6); Monocytes Percent Auto 5.9 % (2.6-8.5); Neutrophils Absolute Auto 4.1 K/mm3 (1.3-6.7); Neutrophils Percent Auto 60.1 % (45.5-73.1); Platelet Count Result 301 k/mm3 (150-375); Red Blood Count 5.09 M/mm3 (4.6-6.20); Red Cell Distribution Width 13.6 % (11.5-14.5); White Blood Count 6.9 K/mm3 (4.5-10.0)
[2023-09-02 11:50] LABS: INR 1.1; Prothrombin Time 14.4 Seconds (11.1-14.7)
[2023-09-02 11:51] LABS: Partial Thromboplastin Time 33.3 SECONDS (22.3-36.8)
[2023-09-02 11:54] LABS: Alanine Aminotransferase 57 U/L (6-50); Albumin Level 4.8 g/dL (3.5-5.1); Alkaline Phosphatase 22 U/L (38-126); Anion Gap 9 mmol/L (8-16); Aspartate Amino Transferase 54 U/L (17-59); Bilirubin,Total 0.9 mg/dL (0.2-1.3); Blood Urea Nitrogen 11 mg/dL (9-20); Calcium 9.7 mg/dL (8.4-10.2); Carbon Dioxide 28 mmol/L (22-30); Chloride 101 mmol/L (98-107); Estimated CRCL calculation 136 ml/min; Estimated Glomerular Filt Rate > 60; Glucose 76 mg/dL (65-110); Lipase 188 U/L (23-300); Potassium 3.7 mmol/L (3.4-5.0); Sodium 138 mmol/L (137-145)
[2023-09-02 12:06] LABS: Troponin I < 0.012 ng/mL (0.000-0.034)
--- NOTE | 2023-09-02 12:32 | ED.CHESTPAIN ---
HPI - Chest Pain General Chief Complaint: Chest Pain Stated Complaint: left chest and back pain Time Seen by Provider: 09/02/23 12:16 Source: patient Mode of arrival: ambulatory Limitations: no limitations History of Present Illness HPI narrative: This is a 37 year old male who presents with left sided chest and back pain since Friday. 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 His pain is worse with moving his arm or lying flat. Denies cough. He did drive to and from [place] this weekend ([address], 8 hours total in the car) but by an evening and watching daughter's cross country race. Pain is also worse when he sneezes. No underlying cardiar/respiratory conditions. No rash. Describes the pain as dull/achy , 3 out of 10 in severity. No recent surgery/trauma. Denies lower extremity edema. No hemoptysis. No Hx PE/DVT. No hormone use. Related Data Home Medications Medication Instructions Recorded Confirmed hydroxyzine HCl 50 mg tablet 50 mg PO HS 11/12/20 11/12/20 levothyroxine 75 mcg tablet 75 mcg PO DAILY 11/12/20 11/12/20 lorazepam 0.5 mg tablet 0.5 mg PO BID PRN Anxiety 11/12/20 11/12/20 meloxicam 15 mg tablet 15 mg PO HS 11/12/20 11/12/20 sertraline 100 mg tablet 200 mg PO HS 11/12/20 11/12/20 Allergies Allergy/AdvReac Type Severity Reaction Status Date / Time No Known Allergies Allergy Verified 09/02/23 11:46 [facility] Past Medical History Medical History Anxiety Generalized anxiety disorder GERD (gastroesophageal reflux disease) Hypothyroidism PTSD (post-traumatic stress disorder) Surgical History Surgical History (Updated 11/12/20 @ 18:12 by Fazal Mcdermott MD) History of appendectomy Hx of tonsillectomy Family History Family History (Updated 11/13/20 @ 00:18 by Dania Cuadra NP) Father Acute myocardial infarction due to motor vehicle traffic accident Mother Acute myocardial infarction Sibling Hypothyroidism Social History Social History Social History: The patient lives with his and 2 children (one runs [employer]). 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 The patient is a full code. The patient does not use any alcohol marijuana or illicit drugs. 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 Smoking status: Never smoker Alcohol intake: never Substance use: never Gender identity (if verbalized by the patient): Male Spiritual care concerns: No Exam Narrative: GENERAL: Well-appearing, well-nourished, and in no acute distress. HEAD: Normocephalic, atraumatic. EYES: Grossly normal. No scleral icteris. No photophobia. ENT: Nares clear, no rhinorrhea or epistaxis. NECK: Supple. No meningismus CHEST: Clear to auscultation without crackles, wheezes, stridor. No respiratory distress. Speaks in complete sentences. No tenderness to palpation of anterior chest HEART: Regular rate and rhythm. No murmur heard. Normal 2+ radial peripheral pulses. ABDOMEN: Soft nondistended. EXTREMITIES: Normal range of motion. No edema in bilateral upper or lower extremities. SKIN: Warm, dry, no rash along anterior or posterior chest. No ecchymosis or assyemetry along anterior or posterior chest. NEURO: No focal deficits. Alert and oriented x3. PSYCH: Normal mood and affect. Course Vital Signs Vital signs: Vital Signs Temperature 98.8 F 09/02/23 11:20 Pulse Rate 68 09/02/23 11:20 Respiratory Rate 16 09/02/23 11:20 Blood Pressure 145/75 H 09/02/23 11:20 Pulse Oximetry 100 09/02/23 11:20 Temperature 98.8 F 09/02/23 11:20 Pulse Rate 54 L 09/02/23 15:32 Respiratory Rate 13 09/02/23 15:32 Blood Pressure 115/71 09/02/23 15:31 Pulse Oximetry 100 09/02/23 15:32
[2023-09-02 15:24] LABS: Troponin I < 0.012 ng/mL (0.000-0.034)
[2023-09-02] MEDS: ACETAMINOPHEN 500 MG TABLET 1000 MG PO (15:44)
== END 2023-09-02 15:45 | disposition home or self-care (01) ==
PROVIDERS: Emergency Medicine; Emergency Provider Student in an Organized Health Care Education/Training Program; PCP Nurse Practitioner Family
DX: R07.89 Other chest pain (principal); F41.9 Anxiety disorder, unspecified; K21.9 Gastro-esophageal reflux disease without esophagitis; E03.9 Hypothyroidism, unspecified
CPT/HCPCS: 36415; 71046; 80053; 83690; 84484; 85025; 85610; 85730; 93005; 99284; A9270